=== PATIENT | male | born 1975 | race Caucasian/White ===

== ENCOUNTER 2017-02-19 14:50 | Inpatient (IN) | payer MEDICAID, MEDICARE ==
[2017-02-19] MEDS ORDERED: Ketorolac 30 MG/ML SDV ONE (15:38)
[2017-02-19] MEDS ORDERED: Pantoprazole 40 MG Tab.CR ONE (15:38)
[2017-02-19] MEDS ORDERED: methylPREDNISolone Sodium Succinate 125 MG/2 ML SDV ONE (15:38)
[2017-02-19] MEDS ORDERED: metroNIDAZOLE/Normal Saline 100 ML ONE (15:39)
[2017-02-19] MEDS ORDERED: Sodium Chloride 0.9% 1,000 ML ONE (15:39)
[2017-02-19] MEDS ORDERED: Sodium Chloride 0.9% 1,000 ML IV SCH (15:50)
[2017-02-19] MEDS: Piperacillin/Tazobactam/Dext 50 ML IV SCH ×2 (15:50→22:19)
[2017-02-19] MEDS: methylPREDNISolone Sodium Succinate 125 MG/2 ML SDV IVPUSH SCH ×2 (15:52→23:32)
[2017-02-19] MEDS: Pantoprazole 40 MG Tab.CR PO SCH (16:00)
[2017-02-19] MEDS ORDERED: Ketorolac 30 MG/ML SDV IVPUSH PRN (16:01)
[2017-02-19] MEDS ORDERED: Acetaminophen 325 MG Tab PO PRN (16:02)
[2017-02-19] MEDS: metroNIDAZOLE/Normal Saline 500 MG in Premix Bag 1 BAG IV SCH ×2 (16:30→21:01)
[2017-02-20] MEDS: metroNIDAZOLE/Normal Saline 500 MG in Premix Bag 1 BAG IV SCH ×2 (03:07→08:58)
[2017-02-20] MEDS: Piperacillin/Tazobactam/Dext 50 ML IV SCH ×2 (04:17→10:08)
[2017-02-20] MEDS: methylPREDNISolone Sodium Succinate 125 MG/2 ML SDV IVPUSH SCH (07:52)
[2017-02-20 07:57] LABS: CHLORIDE,CL 101 mmol/L (98-115); SODIUM,NA 137 mmol/L (136-145)
[2017-02-20] MEDS: Pantoprazole 40 MG Tab.CR PO SCH (08:58)
[2017-02-20] MEDS ORDERED: methylPREDNISolone Sodium Succinate 125 MG/2 ML SDV IVPUSH ONE (09:47)
[2017-02-20] MEDS ORDERED: cefTRIAXone 2 GM Vial IVPUSH ONE (10:00)
[2017-02-20 11:17] VITALS: BP 113/81
--- NOTE | 2017-02-21 08:05 | DISCH ---
FINAL DIAGNOSIS: Possible left peritonsillar abscess. BRIEF HISTORY: This 41-year-old gentleman was seen and was admitted by Dr. Maciel Crews yesterday from the [facility] for a possibility of a left peritonsillar abscess. He had been sick about 4 days prior with severe tonsillitis, left side seemed to be worse than his right side with some trouble swallowing. CT scan demonstrated a possible left peritonsillar abscess with swelling of the right side of 1.7 cm and left side 2.5 with hypodense areas in the peritonsillar area. He was admitted for observation, IV Solu-Medrol, IV antibiotics, IV Toradol, and monitoring of any elevated white count. DIAGNOSTICS: CT, see above results. Rapid strep, positive group A. White count on February 20 of 12.2, percent of neutrophils of 89.2. Sodium, potassium, BUN, and creatinine unremarkable. Glucose 144, calcium 9.6, albumin 3.18, total protein 8.9. HOSPITAL COURSE: Hospital course was quite uneventful. He did receive steroids, IV Toradol, IV metronidazole, and monitoring for any difficulty in swallowing. He did have ongoing swelling; however, on discharge, it was improved. He never ran a temperature. Blood pressure was 113/81, heart rate 84, O2 sats 96%. He tolerated a full liquid diet. He was given Zosyn q.6 hours along with acetaminophen. He received methylprednisone 80 mg IV push, last one was right before he left the hospital. He is a smoker; however, he did not smoke for a few days prior to coming into the clinic. He did receive 2 g IV push prior to discharge. PHYSICAL EXAM ON DISCHARGE: The patient alert and oriented. No fever, less pain. Oral: He does have ongoing low left tonsillar edema, however, improved from previous exam in the clinic. Mild right-sided edema, some postnasal drip; however, he is negative for hot potato mouth, negative for any difficulty swallowing, or any excessive saliva buildup. No respiratory distress. No wheezing. No stridor noted. DISPOSITION: The patient will be discharged from the hospital. He will be closely followed up at [facility] within 24 hours. He will receive Rocephin 1 g IV push for the next three days in [facility]. He is supposed to rest, drink fluids, not smoke, take his Flagyl, report any stridor, wheezing, shortness of breath, if has saliva build up, pain, or fever immediately. Dr. Maciel Crews was present during this physical exam and agrees with plan of care. DISCHARGE MEDICATIONS: Metronidazole 500 mg p.o. q.12 along with Rocephin 2 g IV push. He will get this in the [facility]. /[id number]/MODL
== END 2017-02-20 13:00 | disposition home or self-care (01) | DRG 153 ==
LOC: KA.MS 15:03
PROVIDERS: ADMIT Family Medicine; ATTEND Family Medicine
DX: J36 Peritonsillar abscess (principal); F17.210 Nicotine dependence, cigarettes, uncomplicated
CPT/HCPCS: 36415; 80053; 85025; A9270-GY; J0696; J1885; J2543; J2930

== ENCOUNTER 2020-03-23 16:28 | Emergency (ER) | payer MEDICAID, MEDICARE ==
[2020-03-23 16:40] VITALS: BP 143/96; PULSE 91
[2020-03-23] MEDS ORDERED: Sodium Chloride 0.9% 10 ML Syringe FLUSH PRN (16:52)
--- NOTE | 2020-03-23 16:54 | EDM.PDOC ---
ED HPI GENERAL MEDICAL PROBLEM - General Chief Complaint: General Stated Complaint: VOMITIING, WEAKNESS Time Seen by Provider: 03/23/20 16:40 Source of Information: Reports: Patient History Limitations: Reports: No Limitations - History of Present Illness INITIAL COMMENTS - FREE TEXT/NARRATIVE: 44 YO WM PRESENTS TO ER AFTER EPISODE OF NAUSEA AND DIZZINESS WHICH OCCURRED JUST PRIOR TO ARRIVAL. PT REPORTS HE HAS BEEN ON THE GO, WORKING A LOT AND DRINKING ENERGY DRINKS (COFFEE, MONSTERS X 2, AND MOUNTAIN DEW) ALL DAY AND WHILE DRIVING TO WORK TONIGHT HE BEGAN TO FEEL NAUSEATED AND DIZZY. PT REPORTS HE THOUGHT HE MIGHT PASS OUT BUT WAS ABLE TO DRIVE HIMSELF TO THE HOSPITAL FOR EVALUATION. 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 PT DENIES CHEST PAIN, SHORTNESS OF BREATH, PALPITATIONS, FEVER/CHILLS, NO COUGH/CONGESTION, NO DIARRHEA OR FLUID LOSS TODAY. PT ALERT AND ORIENTED X 4. Onset: Today Duration: Minutes: Location: Reports: Generalized Severity: Moderate Improves with: Reports: Rest Worsens with: Reports: Other (HEAT) Associated Symptoms: Reports: Loss of Appetite, Malaise, Nausea/Vomiting, Weakness. Denies: Confusion, Chest Pain, Cough, Fever/Chills, Headaches, Rash, Seizure, Shortness of Breath, Syncope - Related Data Allergies Allergy/AdvReac Type Severity Reaction Status Date / Time No Known Allergies Allergy Verified 03/23/20 16:40 Home Meds: Home Meds . [No Known Home Meds] 03/23/20 [History] Past Medical History HEENT History: Reports: Other (See Below) Other HEENT History: Sore throat since Saturday evening. - Past Surgical History Musculoskeletal Surgical History: Reports: Arthroscopic Knee, Other (See Below) Other Musculoskeletal Surgeries/Procedures:: left knee Social & Family History - Caffeine Use Caffeine Use: Reports: Soda ED ROS GENERAL - Review of Systems Review Of Systems: See Below Constitutional: Reports: No Symptoms HEENT: Reports: No Symptoms Respiratory: Reports: No Symptoms Cardiovascular: Reports: No Symptoms Endocrine: Reports: No Symptoms GI/Abdominal: Reports: Nausea. Denies: Abdominal Pain : Reports: No Symptoms Musculoskeletal: Reports: No Symptoms Skin: Reports: No Symptoms Neurological: Reports: Dizziness Psychiatric: Reports: No Symptoms Hematologic/Lymphatic: Reports: No Symptoms Immunologic: Reports: No Symptoms ED EXAM, GENERAL - Physical Exam Exam: See Below Exam Limited By: No Limitations General Appearance: Alert, WD/WN, No Apparent Distress Eye Exam: Bilateral Eye: PERRL Head: Atraumatic, Normocephalic Neck: Normal Inspection, Supple, Non-Tender, Full Range of Motion Respiratory/Chest: No Respiratory Distress, Lungs Clear, Normal Breath Sounds, No Accessory Muscle Use, Chest Non-Tender Cardiovascular: Normal Peripheral Pulses, Regular Rate, Rhythm, No Edema, No Gallop, No JVD, No Murmur, No Rub GI/Abdominal: Normal Bowel Sounds, Soft, Non-Tender, No Organomegaly, No Distention, No Abnormal Bruit, No Mass Back Exam: Normal Inspection, Full Range of Motion, NT Extremities: Normal Inspection, Normal Range of Motion, Non-Tender, Normal Capillary Refill, No Pedal Edema Neurological: Alert, Oriented, CN II-XII Intact, Normal Cognition, Normal Gait, Normal Reflexes, No Motor/Sensory Deficits Psychiatric: Normal Affect, Normal Mood Skin Exam: Warm, Dry, Intact, Normal Color, No Rash Lymphatic: No Adenopathy EKG INTERPRETATION EKG Date: 03/23/20 Time: 16:42 Rhythm: NSR Rate (Beats/Min): 84 [place]: Normal P-Wave: Present QRS: Normal ST-T: Normal QT: Normal Comparison: NA - No Prior EKG Course - Vital Signs Last Recorded V/S: Last Vital Signs Temp 36.2 C 03/23/20 16:36 Pulse 91 03/23/20 16:36 Resp 16 03/23/20 16:36 BP 143/96 H 03/23/20 16:36 Pulse Ox 96 03/23/20 16:36 - Orders/Labs/Meds Orders: Active Orders 24 hr Category Date Time Status EKG Documentation Completion [RC] ASDIRECTED Care 03/23/20 16:35 Active Peripheral IV Care [RC] . DIRECTED Care 03/23/20 16:53 Active Sodium Chloride 0.9% [Normal Saline] 1,000 ml Med 03/23/20 17:06 Active IV .BOLUS Sodium Chloride 0.9% [Saline Flush] Med 03/23/20 16:52 Active 10 ml FLUSH Q8HR PRN Peripheral IV Insertion Adult [OM.PC] Routine Oth 03/23/20 16:52 Ordered EKG 12 Lead [EK] Stat Ther 03/23/20 16:35 Ordered Medication Orders Sodium Chloride (Normal Saline) 1,000 mls @ 999 mls/hr IV .BOLUS ONE Stop: 03/23/20 18:06 Last Admin: 03/23/20 17:16 Dose: 999 mls/hr Documented by: SAVAGE Sodium Chloride (Saline Flush) 10 ml FLUSH Q8HR PRN PRN Reason: keep vein open Last Admin: 03/23/20 17:18 Dose: 10 ml Documented by: SAVAGE Labs: Laboratory Tests 03/23/20 03/23/20 03/23/20 Range/Units 17:00 17:00 17:00 WBC 14.10 H (5.00-10.00) 10^3/uL RBC 5.20 (4.50-6.00) 10^6/uL Hgb 15.8 (13.0-17.0) g/dL Hct 45.6 (40.0-52.0) % MCV 87.7 D (82.0-92.0) fL MCH 30.4 (27.0-31.0) pg MCHC 34.6 (32.0-36.0) g/dL RDW 13.6 (11.5-14.5) % Plt Count 264 (150-400) 10^3/uL MPV 10.4 (7.4-10.4) fL Immature Gran % (Auto) 0.1 (0.0-5.0) % Neut % (Auto) 67.7 (50.0-70.0) % Lymph % (Auto) 20.1 (20.0-40.0) % Jenkins % (Auto) 9.6 H (2.0-8.0) % Eos % (Auto) 2.1 (1.0-3.0) % Baso % (Auto) 0.4 (0.0-1.0) % Neut # (Auto) 9.54 H (2.50-7.00) 10^3/uL Lymph # (Auto) 2.84 (1.00-4.00) 10^3/uL Jenkins # (Auto) 1.36 H (0.10-0.80) 10^3/uL Eos # (Auto) 0.30 (0.10-0.30) 10^3/uL Baso # (Auto) 0.05 (0.00-0.10) 10^3/uL Immature Gran # (Auto) 0.01 (0.00-0.50) 10^3/uL PT 10.8 (9.2-11.2) SEC INR 1.1 (0.9-1.1) APTT 28.8 (22.8-31.4) SEC Sodium 138 (136-145) mmol/L Potassium 3.5 (3.3-5.3) mmol/L Chloride 101 (98-115) mmol/L Carbon Dioxide 25.3 (21.0-32.0) mmol/L Anion Gap 15.2 H (5-15) mmol/L BUN 12 (6-25) mg/dL Creatinine 0.67 (0.51-1.17) mg/dL Est Cr Clr Drug Dosing 156.04 mL/min Estimated GFR (MDRD) > 60 mL/min Glucose 84 (75 - 99) mg/dL Calcium 8.6 L (8.7-10.3) mg/dL Total Bilirubin 1.0 (0.2-1.0) mg/dL AST 16 (15-37) U/L ALT 40 (12-78) U/L Alkaline Phosphatase 109 (46-116) IU/L Creatine Kinase 131 (26-276) U/L CK-MB (CK-2) 2.40 (0.00-4.30) ng/mL Troponin I 0.06 (0.00-0.070) ng/mL Total Protein 7.8 (6.4-8.2) g/dL Albumin 3.90 (3.00-4.80) g/dL Lipase 88 (73-393) U/L Meds: Medications Generic Name Dose Route Start Last Admin Trade Name Freq PRN Reason Stop Dose Admin Sodium Chloride 1,000 mls @ 999 mls/hr 03/23/20 17:06 03/23/20 17:16 Normal Saline IV 03/23/20 18:06 999 mls/hr .BOLUS ONE Administration Sodium Chloride 10 ml 03/23/20 16:52 03/23/20 17:18 Saline Flush FLUSH 10 ml Q8HR PRN Administration keep vein open - Radiology Interpretation Free Text/Narrative:: CXR- NAD - Re-Assessments/Exams Free Text/Narrative Re-Assessment/Exam: 03/23/20 17:48 PT REPORTS HE FEELS MUCH BETTER AFTER IVF AND ORAL FLUID CHALLENGE. PT DENIES DIZZINESS, CHEST PAIN, NAUSEA OR PALPITATIONS. PT WAS INSTRUCTED TO CUT BACK ON CAFFEINE, SUGAR AND ENERGY DRINKS AND INSTRUCTED TO FOLLOW UP IN CLINIC FOR FUR THER EVALUATION AND TREATMENT NEEDED. Departure - Departure Time of Disposition: 17:51 Disposition: Home, Self-Care 01 Condition: Good Clinical Impression: Heat exhaustion Qualifiers: Encounter type: initial encounter Qualified Code(s): T67.5XXA - Heat exhaustion, unspecified, initial encounter - Discharge Information Instructions: Heat Exhaustion Referrals: Xi Javier MD [Primary Care Provider] - Forms: ED Department Discharge Additional Instructions: 1. DISCHARGE HOME 2. INCREASE FLUIDS- 64OZ OF WATER PER DAY 3. CUT BACK ON CAFFEINE, SUGAR AND ENERGY DRINKS 4. RETURN TO ER FOR WORSENING SYMPTOMS 5. FOLLOW UP WITH PCP FOR FURTHER EVALUATION AND TREATMENT NEEDED Sepsis Event Note (ED) - Evaluation Sepsis Screening Result: No Definite Risk - Focused Exam Vital Signs: Vital Signs Temp Pulse Resp BP Pulse Ox 03/23/20 16:36 36.2 C 91 16 143/96 H 96 - My Orders Last 24 Hours: My Active Orders 03/23/20 16:35 EKG Documentation Completion [RC] ASDIRECTED EKG 12 Lead [EK] Stat 03/23/20 16:52 Sodium Chloride 0.9% [Saline Flush] 10 ml FLUSH Q8HR PRN Peripheral IV Insertion Adult [OM.PC] Routine 03/23/20 16:53 Peripheral IV Care [RC] . DIRECTED 03/23/20 17:06 Sodium Chloride 0.9% [Normal Saline] 1,000 ml IV .BOLUS - Assessment/Plan Last 24 Hours: My Active Orders 03/23/20 16:35 EKG Documentation Completion [RC] ASDIRECTED EKG 12 Lead [EK] Stat 03/23/20 16:52 Sodium Chloride 0.9% [Saline Flush] 10 ml FLUSH Q8HR PRN Peripheral IV Insertion Adult [OM.PC] Routine 03/23/20 16:53 Peripheral IV Care [RC] . DIRECTED 03/23/20 17:06 Sodium Chloride 0.9% [Normal Saline] 1,000 ml IV .BOLUS Assessment:: 1. MILD HEAT EXHAUSTION Plan: 1. DISCHARGE HOME 2. INCREASE FLUIDS- 64OZ OF WATER PER DAY 3. CUT BACK ON CAFFEINE, SUGAR AND ENERGY DRINKS 4. RETURN TO ER FOR WORSENING SYMPTOMS 5. FOLLOW UP WITH PCP FOR FURTHER EVALUATION AND TREATMENT NEEDED
[2020-03-23] MEDS ORDERED: Sodium Chloride 0.9% 1,000 ML IV ONE (17:06)
--- NOTE | 2020-03-23 17:20 | CR ---
[id number] RAD/RAD Chest PA And Lateral EXAM: RAD Chest PA And Lateral CLINICAL DATA: DIZZINESS COMPARISON: NO PREVIOUS SIMILAR EXAM IS AVAILABLE. FINDINGS: Granulomatous changes are seen The lungs otherwise are clear The cardiomediastinal contour is normal IMPRESSION: NO ACUTE PROCESS. Gabriel Fall MD 03/23/20 [id number] Thank you for allowing us to participate in the care of your patient.
[2020-03-23 17:26] LABS: PTT,PARTIAL THROMBOPLSTIN TIME 28.8 SEC (22.8-31.4)
[2020-03-23 17:35] LABS: ANION GAP 15.2 mmol/L (5-15); CHLORIDE,CL 101 mmol/L (98-115); SODIUM,NA 138 mmol/L (136-145)
== END 2020-03-23 18:00 | disposition home or self-care (01) ==
LOC: KA.ED 16:28
DX: T67.5XXA Heat exhaustion, unspecified, initial encounter (principal)
CPT/HCPCS: 36415; 71046; 80053; 82550; 82553; 83690; 84484; 85025; 85610; 85730; 93005; 96360; 99284; 99284-25; J7030

== ENCOUNTER 2021-06-17 23:25 | Emergency (ER) | payer BC, MEDICAID ==
[2021-06-18 00:26] VITALS: BP 150/96; PULSE 90
--- NOTE | 2021-06-18 00:28 | EDM.PDOC ---
ED HPI GENERAL MEDICAL PROBLEM - General Chief Complaint: General Stated Complaint: Denture stuck in mouth Time Seen by Provider: 06/17/21 23:32 Source of Information: Reports: Patient, EMS History Limitations: Reports: No Limitations - History of Present Illness INITIAL COMMENTS - FREE TEXT/NARRATIVE: Patient presents via [facility] ambulance with his upper denture plate stuck in his throat. This happened while he was eating and it went partway down his throat while swallowing. No trouble breathing. - Related Data Allergies Allergy/AdvReac Type Severity Reaction Status Date / Time No Known Allergies Allergy Verified 06/17/21 23:31 Home Meds: Home Meds . [No Known Home Meds] 03/23/20 [History] Past Medical History HEENT History: Reports: Other (See Below) Other HEENT History: Sore throat since Saturday evening. - Past Surgical History HEENT Surgical History: Reports: Oral Surgery Musculoskeletal Surgical History: Reports: Arthroscopic Knee, Other (See Below) Other Musculoskeletal Surgeries/Procedures:: left knee Social & Family History - Family History Family Medical History: No Pertinent Family History - Caffeine Use Caffeine Use: Reports: Soda ED ROS GENERAL - Review of Systems Review Of Systems: Comprehensive ROS is negative, except as noted in HPI. ED EXAM, GENERAL - Physical Exam Exam: See Below Exam Limited By: No Limitations General Appearance: Alert, WD/WN, No Apparent Distress Eye Exam: Bilateral Eye: EOMI, Normal Inspection, PERRL Ears: Normal External Exam, Hearing Grossly Normal Nose: Normal Inspection, No Blood Throat/Mouth: Normal Lips, No Airway Compromise, Other (He has an upper denture plate with several sharp hooks that loop around molars for stability. Evidently one or more of these hooks are lodged behind the soft palate. I attempted for 30 minutes to maneuver and free it but was unsuccessful. Patient tolerated this well and there is airway compromise). No: Normal Teeth (very poor dentition) Head: Atraumatic, Normocephalic Neck: Normal Inspection, Full Range of Motion Respiratory/Chest: No Respiratory Distress, Lungs Clear, Normal Breath Sounds Cardiovascular: Regular Rate, Rhythm, No Murmur Back Exam: Full Range of Motion Extremities: Normal Inspection, Normal Range of Motion Neurological: Alert, Oriented, Normal Cognition, No Motor/Sensory Deficits Psychiatric: Normal Affect, Normal Mood Skin Exam: Warm, Dry, Intact, Normal Color, No Rash Course - Vital Signs Last Recorded V/S: Last Vital Signs Temp 97.1 F 06/17/21 23:32 Pulse 92 06/18/21 00:00 Resp 18 06/18/21 00:00 BP 136/91 H 06/18/21 00:00 Pulse Ox 98 06/18/21 00:00 - Re-Assessments/Exams Free Text/Narrative Re-Assessment/Exam: 06/18/21 00:29 Discussed findings and recommendations with patient. After unsuccessful attempts to remove the denture plate, I called [facility] and discussed case with Dr. Thornton, oral surgeon. He has never seen anything like this before but says we can send to ER and they will call him in if needed. Patient left with [facility] ambulance in stable condition. Departure - Departure Time of Disposition: 00:20 Disposition: DC/Tfer to Acute Hospital 02 Condition: Good Clinical Impression: Foreign body in throat Qualifiers: Encounter type: initial encounter Qualified Code(s): T17.208A - Unspecified foreign body in pharynx causing other injury, initial encounter - Discharge Information Forms: ED Department Discharge Sepsis Event Note (ED) - Evaluation Sepsis Screening Result: No Definite Risk - Focused Exam Vital Signs: Vital Signs Temp Pulse Resp BP Pulse Ox 06/18/21 00:00 92 18 136/91 H 98 06/17/21 23:45 88 16 122/81 97 06/17/21 23:32 97.1 F 90 16 140/99 H 96
== END 2021-06-18 00:35 ==
LOC: KA.ED 23:25
DX: T17.208A Unspecified foreign body in pharynx causing other injury, initial encounter (principal)
CPT/HCPCS: 99283; 99284